=== PATIENT | male | born 1990 | race Asian ===

== ENCOUNTER → 2016-11-16 | Outpatient (CLI) | payer OTHER ==
--- NOTE | 2016-11-16 14:17 | MAMMOGRAPHY REPORT ---
MALE BILATERAL DIGITAL DIAGNOSTIC MAMMOGRAM WITH CAD AND TARGETED BILATERAL ULTRASOUND: 11/16/2016 CLINICAL HISTORY: The patient reports a tender palpable lump in the left subareolar breast for appro ximately 3-4 years. He had an ultrasound in [place], which showed bilateral subareolar masses. The p atient denies ever having tenderness or lump in the right subareolar breast. TECHNIQUE: Current study was also evaluated with a Computer Aided Detection (CAD) system. Bilatera l CC and MLO views were obtained. COMPARISON: No prior exams were available for comparison. BREAST COMPOSITION: The tissue of both breasts is prominently fatty. FINDINGS: [place] markers stormy the site of the lumps in bilateral subareolar regions. There is a small amoun t of flame-shaped fibroglandular tissue is seen within the left subareolar breast, consistent with g ynecomastia. A very small amount of fibroglandular tissue is also seen within the right subareolar breast. No suspicious masses, calcifications, or areas of architectural distortion are noted in eit her breast. Targeted ultrasound was performed of bilateral subareolar breasts, in the region of the tender palpa ble lumps. Fibroglandular tissue is seen within the left subareolar breast, without evidence of a m ass or other suspicious sonographic abnormality. A very small amount of fibroglandular tissue is al so seen within the right subareolar breast, without evidence of a mass or other suspicious sonograph ic abnormality. IMPRESSION: ACR BI-RADS CATEGORY 2: BENIGN, TARGETED ULTRASOUND ACR BI-RADS CATEGORY 2: BENIGN Mild bilateral gynecomastia, left greater then right, which corresponds with the palpable lumps. The re is no mammographic or targeted sonographic evidence of malignancy. Recommend clinical follow-up. The patient has been verbally notified of the results. Approximately 10% of breast cancers are not detected with mammography. A negative mammographic repor t should not delay biopsy if a clinically suggestive mass is present. Angelica Young M.D. /:11/16/2016 09:10:56 Independent [employer]eler: Renée TAYLOR)(Aleja), [facility] letter sent: Normal 1/2 BI-RADS Code: ACR BI-RADS Category 2: Benign Ultrasound BI-RADS: ACR BI-RADS Category 2: Benign
== END | disposition home or self-care (01) ==
LOC: C.MAMM 08:25
PROVIDERS: ATTEND Internal Medicine
DX: R92.8 Other abnormal and inconclusive findings on diagnostic imaging of breast (principal); N62 Hypertrophy of breast